=== PATIENT | female | born 1960 | race Two or more races ===

== ENCOUNTER 2019-04-02 12:46 | Outpatient (CLI) | payer OTHER | END 2019-04-02 15:59 | disposition home or self-care (01) | LOC: RAD 12:46 | DX: M25.562 Pain in left knee (principal) ==

== ENCOUNTER 2020-02-05 07:54 | Outpatient (CLI) | payer OTHER | END 2020-02-05 07:58 | disposition home or self-care (01) | LOC: SONOGRAMA 07:54 | DX: E04.1 Nontoxic single thyroid nodule (principal) ==

== ENCOUNTER 2022-02-01 16:01 | Outpatient (CLI) | payer OTHER | END 2022-02-01 16:06 | disposition home or self-care (01) | LOC: RAD 16:01 | PROVIDERS: ATTEND Orthopaedic Surgery | DX: M25.562 Pain in left knee (principal) ==